=== PATIENT | male | born 1945 | race Caucasian/White ===

== ENCOUNTER 2018-07-19 09:24 | Outpatient (CLI) | payer MEDICARE ==
--- NOTE | 2018-07-21 13:12 | CT Report ---
Reason: PERSONAL HISTORY OF NICOTINE Procedure Date: 07/19/2018 Accession Number: [id number] / [id number] Procedure: CT - Chest/Lung Screen Low Dose W/O CPT Code: FULL RESULT: EXAM CT LUNG SCREEN EXAM DATE: 07/19/2018 09:53 AM. HISTORY: 72-year-old patient with 30 year smoking history, uncertain pack year history. Currently smoking: No. Years since quittin. COMPARISON: None. TECHNIQUE: CT examination of the entire thorax without contrast was performed using low-dose technique. Thin section coronal, axial, sagittal and MIP axial images were obtained. In accordance with CT protocol optimization, one or more of the following dose reduction techniques were utilized for this exam: automated exposure control, adjustment of mA and/or KV based on patient size, or use of iterative reconstructive technique. FINDINGS: Nodules: Right upper lobe: 3 x 2 mm solid nodule (4/54). 3 mm solid nodule (4/68). Right middle lobe: 3 x 2 mm solid nodules in association with the minor fissure, suggestive of perifissural lymph nodes (4/81,84 ). Right lower lobe: 4 x 2 mm solid nodule (4/69). Left upper lobe: None. Left lower lobe: None. Emphysema: None. Pleura: Unremarkable. Aorta: No aneurysm. Scattered atherosclerotic calcification. Mediastinum: Unremarkable. Coronary calcifications: 3-vessel coronary artery calcifications are present. Other pulmonary findings: Peripheral scarring/atelectasis in the lingula and RML. Other extrapulmonary findings: Nonspecific hepatic segment 5/6 hypodensity measuring 20 mm, adjacent smaller apparent hypodensities. IMPRESSION: Lung-RADS ASSESSMENT CATEGORY: 2 - Benign appearance or behavior. Probability of malignancy: <1% RECOMMENDATION: Continue annual screening with low-dose chest CT in 12 months. [facility]
== END 2018-07-19 09:25 | disposition home or self-care (01) ==
LOC: DI 09:24
PROVIDERS: ATTEND Student in an Organized Health Care Education/Training Program
DX: Z12.2 Encounter for screening for malignant neoplasm of respiratory organs (principal); Z87.891 Personal history of nicotine dependence